=== PATIENT | male | born 1975 | race Caucasian/White ===

== ENCOUNTER → 2016-07-16 | Outpatient (CLI) | payer BC ==
--- NOTE | 2016-07-16 20:29 | PN ---
DATE OF SERVICE: 07/16/2016 A 41-year-old gentleman who has been followed in the sleep center for discussing results of sleep study and to check treatment with the CPAP. Patient recently initiated on treatment with CPAP. I discussed results of the sleep studies with the patient. Home sleep apnea test showed apnea-hypopnea index 19. CPAP during the CPAP titration affective CPAP pressure was 13 cm of water. Patient was initiated on treatment with CPAP. According to the patient, he feels better with the CPAP. He sleeps better and he feels better during the day. [place] Sleepiness Scale today is 8. I checked his CPAP unit. CPAP pressure is 13 cm of water, ramp is at 5 minutes. The patient does not have any significant problem related to the pressure. He had full-face mask during the study, but he has difficulties with the full-face mask so he was started on treatment with nasal pillow mask, AirFit P10. Patient is using equipment at night, but sometimes in the morning mask is out of the nostrils. Reading of his machine showed that out of 44 days he used it for 42 days but 23 nights for more than 4 hours. Subsequently, he used it but less than 4 hours. Average usage is 4.5 hours. Leak is 30 L/min. Apnea-hypopnea index reading from the machine is only 1.8, which is totally normal. MEDICATIONS: Prevacid. PHYSICAL EXAMINATION: GENERAL: During physical exam, the patient in no distress. VITAL SIGNS: BP 133/89, HR 66, RR 16. Weight 298, temp 97.7, oxygen saturation at room air 95%. HEENT: PERRLA, EOMI. Evaluation of oropharynx showed extremely low position of soft palate. NECK: Supple. No JVD. Thyroid is not palpable. LUNGS: Clear to percussion and to auscultation. Good air exchange. No wheezing or rhonchi. HEART: S1, S2 regular. No murmurs, gallops, or rubs. ABDOMEN: Obese, soft and nontender. Bowel sounds are present. No organomegaly appreciated. EXTREMITIES: No clubbing or cyanosis. HVAC CONTROLS TECHNICIAN: Awake, alert, and oriented x3. Cranial nerves 2 to 7 intact. There is no fasciculation or atrophy noted. No focal deficits observed. IMPRESSION: 1. Moderate obstructive sleep apnea-hypopnea syndrome. Apnea-hypopnea index 19 with oxygen desaturation to 83% on control with CPAP at the pressure of 13 cm of water. Patient is benefiting from treatment. He is using equipment every night but on the second part of the night sometimes mask falls off his face. 2. Obesity. 3. Acid reflux. 4. Status post laser surgery on the larynx. 5. Status post spinal fusion of the neck. 6. Back problems. 7. Knee pain. PLAN: 1. Patient will continue to use CPAP equipment every night for the whole night. 2. We will consider to change nasal pillow to Flynn FX nasal pillows. 3. Losing weight. 4. Sleep hygiene with regular time in bed for at least 8 hours. 5. No driving if feeling any sleepiness. Thank you very much for allowing me to participate in the management of your patients. Sincerely, Michael Graves MD, PhD, FAASM. Diplomat of [employer], Sleep Medicine Board by [employer] Ssrs Developer of [facility] [place]
== END | disposition home or self-care (01) ==
LOC: SLEEP 16:07
PROVIDERS: ATTEND Internal Medicine
DX: G47.33 Obstructive sleep apnea (adult) (pediatric) (principal); E66.9 Obesity, unspecified; K21.9 Gastro-esophageal reflux disease without esophagitis; Z98.890 Other specified postprocedural states; Z98.1 Arthrodesis status; M25.569 Pain in unspecified knee; Z79.899 Other long term (current) drug therapy

== ENCOUNTER → 2017-09-21 | Outpatient (CLI) | payer BC ==
--- NOTE | 2017-09-21 21:13 | MR ---
MR sacroiliac joints HISTORY: Low back pain, ankylosing spondylitis Multiplanar multisequence imaging through the sacroiliac joints No additional studies available for correlation. Bone marrow signal is remarkable for possible small subchondral geode along the sacrum on the right. Minimal subchondral marrow edema is suspected. Low signal present along both sides of the sacroiliac joints on T1 and T2-weighted sequences suggests sclerosis Cartilage is maintained. There is no eviden t erosion, ankylosis, or significant hypertrophic change, sacroiliac joints are intact. There is no e vident spinal stenosis. Disc spaces at the lower lumbar spine, lumbar sacral junction are normal. IMPRESSION: Mild subchondral edema, possible sclerosis without ankylosis.
== END | disposition home or self-care (01) ==
LOC: RADMRIMAIN 19:31
PROVIDERS: ATTEND Internal Medicine Rheumatology
DX: R60.0 Localized edema (principal)
CPT/HCPCS: 72195

== ENCOUNTER → 2017-12-18 | Outpatient (CLI) | payer BC ==
[2017-12-18 08:37] LABS: Basophils % (A) 0 %; Eosinophils # (A) 0.1 k/uL (0-0.7); Eosinophils % (A) 1 %; HCT 42.3 % (39.0-53.0); HGB 14.6 gm/dL (13.0-17.5); Lymphocytes # (A) 1.9 k/uL (1.0-4.8); Lymphocytes % (A) 19 %; MCH 29.9 pg (25.0-35.0); MCHC 34.5 g/dL (31.0-37.0); MCV 86.8 fL (80.0-100.0); Mean Platelet Volume 7.9; Monocytes # (A) 0.7 k/uL (0-1.0); Monocytes % (A) 7 %; Neutrophils # (A) 7.2 k/uL (1.3-7.7); Neutrophils % (A) 72 %; Platelet Count 209 k/uL (150-450); RBC 4.88 m/uL (4.30-5.90); RDW 13.3 % (11.5-15.5); WBC 10.1 k/uL (3.8-10.6)
[2017-12-18 09:48] LABS: ALT 44 U/L (21-72); AST 24 U/L (17-59); Albumin 3.9 g/dL (3.5-5.0); Alkaline Phosphatase 69 U/L (38-126); Anion Gap 8 mmol/L; Blood Urea Nitrogen 14 mg/dL (9-20); Calcium 8.9 mg/dL (8.4-10.2); Carbon Dioxide 24 mmol/L (22-30); Chloride 108 mmol/L (98-107); Cholesterol 133 mg/dL (<200); Glucose 124 mg/dL (74-99); HDL Cholesterol 37 mg/dL (40-60); LDL Cholesterol,Calculated 81 mg/dL (0-99); Potassium 4.6 mmol/L (3.5-5.1); Sodium 140 mmol/L (137-145); Total Bilirubin 0.5 mg/dL (0.2-1.3); Total Protein 6.8 g/dL (6.3-8.2); Triglycerides 76 mg/dL (<150)
[2017-12-18 18:39] LABS: Hemoglobin A1C 6.1 % (4.0-6.0)
== END | disposition home or self-care (01) ==
LOC: LABWHC1 08:00
PROVIDERS: ATTEND Family Medicine
DX: E11.9 Type 2 diabetes mellitus without complications (principal); I10 Essential (primary) hypertension; E78.5 Hyperlipidemia, unspecified; Z12.5 Encounter for screening for malignant neoplasm of prostate
CPT/HCPCS: 84439; 80061; 80053; 84443; 85025; 83036; 36415; G0103

== ENCOUNTER → 2018-03-26 | Outpatient (CLI) | payer BC ==
[2018-03-26 17:08] LABS: Albumin 4.4 g/dL (3.80-4.90); Albumin/Globulin Ratio 1.91 (1.20-2.10); Anion Gap 11.6 mmol/L (4.00-12.00); Calcium 9.2 mg/dL (8.7-10.3); Carbon Dioxide 25.4 mmol/L (21.6-31.8); Globulin 2.3 g/dL (2.1-3.7); Potassium 4.2 mmol/L (3.5-5.5); Total Bilirubin 0.6 mg/dL (0.2-1.2); Total Protein 6.7 g/dL (6.2-8.2)
[2018-03-26 18:06] LABS: Hemoglobin A1C 7.7 % (4.0-6.0)
== END | disposition home or self-care (01) ==
LOC: LABWHC1 08:14
PROVIDERS: ATTEND Family Medicine
DX: E11.9 Type 2 diabetes mellitus without complications (principal)
CPT/HCPCS: 36415; 80053; 80061; 83036

== ENCOUNTER → 2019-01-28 | Outpatient (CLI) | payer BC ==
[2019-01-28 16:58] LABS: African American GFR (CKD) 126.8 (60.0-200.0); Albumin 4.3 g/dL (3.80-4.90); Albumin/Globulin Ratio 2.05 (1.60-3.17); Anion Gap 9.3 mmol/L (4.00-12.00); BUN/Creat Ratio 17.5 Ratio (12.00-20.00); Calcium 9.2 mg/dL (8.7-10.3); Carbon Dioxide 26.7 mmol/L (21.6-31.8); Chol/HDL Ratio 4.37; Globulin 2.1 g/dL (1.6-3.3); LDL Cholesterol,Calculated 62.2 mg/dL (0.0-131.0); Potassium 4.2 mmol/L (3.5-5.5); Total Bilirubin 0.5 mg/dL (0.3-1.2); Total Protein 6.4 g/dL (6.2-8.2); VLDL Calculation 38.8 mg/dL (5.00-40.00)
== END | disposition home or self-care (01) ==
LOC: LABWHC1 08:00
PROVIDERS: ATTEND Family Medicine
DX: I10 Essential (primary) hypertension (principal); E78.5 Hyperlipidemia, unspecified; E11.9 Type 2 diabetes mellitus without complications
CPT/HCPCS: 36415; 80053; 80061; 83036; 84403

== ENCOUNTER → 2020-10-14 | Outpatient (CLI) | payer BC | END | disposition home or self-care (01) | LOC: LABPAT 07:01 | PROVIDERS: ATTEND Surgery | DX: Z01.810 Encounter for preprocedural cardiovascular examination (principal); Z11.52 Encounter for screening for COVID-19 | CPT/HCPCS: 93005; U0003; C9803; U0005 ==

== ENCOUNTER 2020-10-22 08:51 | Day surgery (SDC) | payer BC ==
[2020-10-18 10:24] VITALS: BMI 38.0
[~2020-10-22 08:51] MED LIST: DEXAMETHASONE SOD PHOSPHATE 4 MG/ML 1 ML VIAL IV ONE; HEPARIN SODIUM,PORCINE/PF 5,000 UNIT/0.5 ML SYRINGE SQ PRN; HYDROmorphone 0.5 MG/0.5 ML SYRINGE IVP PRN; LACTATED RINGERS 1,000 ML IV SCH; MIDAZOLAM 2 MG/2 ML VIAL IV PRN; ONDANSETRON 4 MG/2 ML VIAL IVP ONE; SCOPOLAMINE 1.5MG/72HR PATCH TRANSDERM ONE; ceFAZolin 3 GM in SODIUM CHLORIDE 0.9% 100 ML IVPB PRN
[2020-10-22 09:26] LABS: Glucose,Whole Blood 124 mg/dL (75-99)
[2020-10-22 10:00] LABS: HCT 45.6 % (39.0-53.0); HGB 16.2 gm/dL (13.0-17.5); MCHC 35.6 g/dL (31.0-37.0); MCV 87.2 fL (80.0-100.0); Mean Platelet Volume 8.9; Platelet Count 211 k/uL (150-450); RBC 5.23 m/uL (4.30-5.90); RDW 12.8 % (11.5-15.5); WBC 8.1 k/uL (3.8-10.6)
[2020-10-22] MEDS ORDERED: fentaNYL (PF) 50 MCG/ML 2 ML AMP IV ONE (10:07)
[2020-10-22] MEDS ORDERED: MIDAZOLAM 2 MG/2 ML VIAL IV ONE (10:07)
[2020-10-22] MEDS ORDERED: ROPIVACAINE 5 MG/ML 30 ML VIAL ONE (11:00)
[2020-10-22] MEDS ORDERED: ROCURONIUM 10 MG/ML (5 ML VIAL) IV ONE (11:00)
[2020-10-22] MEDS ORDERED: LIDOCAINE 1% INJ 10MG/ML (20 ML MDV) ONE (11:00)
[2020-10-22] MEDS ORDERED: MIDAZOLAM 2 MG/2 ML VIAL ONE (11:00)
[2020-10-22] MEDS ORDERED: PROPOFOL 10 MG/ML 20 ML VIAL IV ONE (11:00)
[2020-10-22] MEDS ORDERED: HYDROmorphone (PF) 1 MG/ML ONE (11:00)
[2020-10-22] MEDS ORDERED: KETOROLAC 15 MG/ML 1 ML VIAL ONE (11:00)
[2020-10-22] MEDS ORDERED: SUCCINYLCHOLINE CHLORIDE VIAL 200 MG/10 ML VIAL IV ONE (11:00)
[2020-10-22] MEDS ORDERED: fentaNYL (PF) 50 MCG/ML 2 ML AMP ONE (11:00)
--- NOTE | 2020-10-22 11:04 | P.HPIHPCON ---
History of Present Illness H&P Date: 10/22/20 Chief Complaint: Umbilical hernia This is a 45-year-old male that originally presented to the office with complaints of possible hernia. This was located in the umbilical area with a palpable bulge. He stated that the pain was made worse by straining, lifting or pulling. It was made better by resting. He denied any significant changes to bowel function. He denies any previous hernia or abdominal surgeries. Consent for Procedure: I have explained the operation/procedure to the patient, including the risks, benefits, side effects, alternative therapies (including not receiving the proposed treatment or service), the likelihood of the patient achieving his/her goals, and potential recuperation problems for the procedure/sedation/analgesia, as well as any blood products, if indicated. I also explained to the patient the risks, benefits and side effects of the alternatives, as well as the risks related to not receiving the proposed procedure, care, treatment, or services. - Review of Systems All systems: negative Past Medical History Past Medical History: Diabetes Mellitus, GERD/Reflux, Osteoarthritis (OA) Additional Past Medical History / Comment(s): HX OF LEUKOPLAKIA OF LARYNX History of Any Multi-Drug Resistant Organisms: None Reported Additional Past Surgical History / Comment(s): Cervical Fusion, laser of Leukoplakia of larynx Past Anesthesia/Blood Transfusion Reactions: No Reported Reaction, Previous Problems w/ Anesthesia, Motion Sickness Additional Past Anesthesia/Blood Transfusion Reaction / Comment(s): states he was awake during larynx surgery. Past Psychological History: No Psychological Hx Reported Smoking Status: Former smoker Past Alcohol Use History: Rare Additional Past Alcohol Use History / Comment(s): quit smoking 2007, smoked 1ppd, started age 19. Past Drug Use History: Marijuana Additional Drug Use History / Comment(s): no current marijuana use - Past Family History Mother Family Medical History: No Reported History Medications and Allergies Home Medications Medication Instructions Recorded Confirmed Type metFORMIN HCL [Glucophage] 500 mg PO QID 06/08/17 10/18/20 History Aspirin [Adult Low Dose Aspirin EC] 81 mg PO DAILY 10/18/20 10/18/20 History Atorvastatin [Lipitor] 20 mg PO HS 10/18/20 10/18/20 History Empagliflozin [Jardiance] 25 mg PO DAILY 10/18/20 10/18/20 History Lansoprazole 30 mg PO HS 10/18/20 10/18/20 History Losartan Potassium 50 mg PO HS 10/18/20 10/18/20 History Multivitamins, Thera [Multivitamin 1 tab PO DAILY 10/18/20 10/18/20 History (formulary)] Allergies Allergy/AdvReac Type Severity Reaction Status Date / Time No Known Allergies Allergy Verified 10/22/20 09:13 Surgical - Exam Osteopathic Statement: *. No significant issues noted on an osteopathic structural exam other than those noted in the History and Physical/Consult. Vital Signs Temp Pulse Resp BP Pulse Ox 98 F 74 17 158/88 97 10/22/20 09:19 10/22/20 09:19 10/22/20 09:19 10/22/20 09:19 10/22/20 09:19 - General well nourished, no distress - Respiratory normal respiratory effort - Abdomen Soft, nontender, nondistended, palpable and reducible umbilical hernia Results - Labs 10/22/20 09:23 Abnormal Lab Results - Last 24 Hours (Table) 10/22/20 Range/Units 09:25 POC Glucose (mg/dL) 124 H (75-99) mg/dL Assessment and Plan Plan: Plan is for robotic of local hernia repair with mesh placement. Risks, benefits and alternatives were provided to the patient. Instructions were provided to the patient. Further recommend irrigations after procedure.
[2020-10-22] MEDS ORDERED: LIDOCAINE 1%-EPI 1:100,000 20 ML VIAL SQ ONE ×3 (11:19)
[2020-10-22] MEDS ORDERED: LACTATED RINGERS 1,000 ML IV ONE (11:37)
--- NOTE | 2020-10-22 12:08 | P.OP ---
Date of Procedure: 10/22/20 Preoperative Diagnosis: Umbilical hernia Postoperative Diagnosis: Umbilical hernia Procedure(s) Performed: Robotic umbilical hernia repair with mesh Implants: 11 cm circular Bard ventralight echo 2.0 mesh Anesthesia: JANETTEA Surgeon: Nicola Elizabeth Pathology: other (Hernia sac) Condition: stable Disposition: same day Indications for Procedure: 45-year-old male presented to the surgery clinic with complaints of pain around the umbilicus and a bulge. He was found to have an umbilical hernia. He has requested repair. Risks, benefits and alternatives were provided to the patient and he did provide consent prior to attending the operating suite. Operative Findings: Umbilical hernia measuring 2 x 2 centimeters Description of Procedure: The patient was brought to the operating suite and placed in supine position. Gen. anesthesia with endotracheal intubation was performed as per anesthesia team. The right arm was tucked the ansa body in the foot board was applied. Chlorhexidine was used to prep the skin followed by application of sterile drapes and a timeout was performed to verify correct patient. After local anesthetic was administered, a 5 mm skin incision was made along the left midaxillary line at palmers point and the abdomen was entered under direct visualization using a Visiport. Pneumoperitoneum was achieved. The umbilical hernia was clearly visualized. It did contain preperitoneal fat and omentum. An additional 8 mm trocar was placed in the left lower abdomen and a 12 mm trocar placed in the left mid abdomen. The initial 5 mm trocar was upsized to an 8 mm trocar. The robot was then docked. A robotic caudier and monopolar scissors were inserted through the 8 mm robotic trochars. The hernia defect contained preperitoneal fat and omentum which were reduced using gentle traction and countertraction method. The falciform ligament was divided, using monopolar scissors close to the anterior abdominal wall to create a landing zone for the mesh. A Tray Echo system circular 11cm mesh was rolled and introduced into the abdominal cavity via the 12 mm trocar. The hernia defect was closed primarily with running sutures using 0 Vlock taking 1cm by of the fascia on either side of the defect. A Antwan Lozada device was inserted through the middle of the hernia defect and the stay suture on the mesh was grasped to elevate the mesh against the anterior abdominal wall. The mesh was circumferentially sutured to the peritoneum of the anterior abdominal wall using 20V lock without any folds or kinks. The robot was then undocked. All trocar sites were examined. No evidence of bleeding. All needles were removed. The 12 mm trocar site was closed using 2 trans-fascial sutures of 0 Vicryl which were placed using a Antwan-Ger device. The pneumoperitoneum was evacuated and all skin incisions were closed using 4-0 Vicryl followed by Dermabond skin glue. The sponge, instrument and needle count were correct 2. Abdominal binder was applied. The patient was explained and taken to postanesthesia care unit in stable condition.
[2020-10-22 12:22] VITALS: TEMP 97.6
[2020-10-22 12:28] LABS: Glucose,Whole Blood 196 mg/dL (75-99)
[2020-10-22] MEDS ORDERED: SODIUM CHLORIDE 0.9% 1,000 ML IV ONE ×2 (13:06)
--- NOTE | 2020-10-22 13:32 | P.ANPRN ---
Procedure Note - Anesthesia - Nerve Block Performed Bilateral Rectus Abdominis Time Out Performed: Yes (:) Date of Procedure: 10/22/20 Procedure Start Time: Procedure Stop Time: Location of Patient: PreOp Indication: Acute Post-Operative Pain, Requested by Surgeon (Dr Elizabeth) Sedation Type: Sedate with meaningful contact maintained Preparation: Sterile Prep Position: Supine Catheter: None Needle Types: Pajunk Needle Gauge: 21 Ultrasound used to visualize needle placement: Yes Ultrasound used to observe medication spread: Yes Injectate: 0.5% Ropivacaine (see comment for volume) (15cc +10cc PF Normal saline each side) Blood Aspirated: No Pain Paresthesia on Injection Noted: No Resistance on Injection: Normal Image Stored and Saved: Yes Events: Uneventful and Well Tolerated
[2020-10-22] MEDS ORDERED: HYDROcodone/APAP 5-325MG 1 EACH TAB ONE (13:42)
[2020-10-22] MEDS ORDERED: HYDROcodone/APAP 5-325MG 1 EACH TAB PO ONE (13:44)
[2020-10-22 13:46] VITALS: BP 138/81; PULSE 78; RESP 16
== END 2020-10-22 14:15 | disposition home or self-care (01) ==
LOC: OR 08:51
PROVIDERS: ATTEND Surgery
DX: K42.9 Umbilical hernia without obstruction or gangrene (principal); M19.90 Unspecified osteoarthritis, unspecified site; E11.9 Type 2 diabetes mellitus without complications; K21.9 Gastro-esophageal reflux disease without esophagitis; I10 Essential (primary) hypertension; E78.5 Hyperlipidemia, unspecified; R01.1 Cardiac murmur, unspecified; E78.00 Pure hypercholesterolemia, unspecified; G47.30 Sleep apnea, unspecified; Z86.19 Personal history of other infectious and parasitic diseases; Z98.1 Arthrodesis status; Z98.890 Other specified postprocedural states; Z87.891 Personal history of nicotine dependence; Z83.3 Family history of diabetes mellitus; Z83.79 Family history of other diseases of the digestive system; Z79.84 Long term (current) use of oral hypoglycemic drugs; Z79.82 Long term (current) use of aspirin; Z79.899 Other long term (current) drug therapy
CPT/HCPCS: 49652; S2900; 64999; 76942; 85027; 88302

== ENCOUNTER 2021-10-24 07:10 | Day surgery (SDC) | payer BC ==
[2021-10-22 13:39] VITALS: BMI 39.4
[~2021-10-24 07:10] MED LIST changes: -DEXAMETHASONE SOD PHOSPHATE 4 MG/ML 1 ML VIAL IV ONE; -HEPARIN SODIUM,PORCINE/PF 5,000 UNIT/0.5 ML SYRINGE SQ PRN; -HYDROmorphone 0.5 MG/0.5 ML SYRINGE IVP PRN; -MIDAZOLAM 2 MG/2 ML VIAL IV PRN; -ONDANSETRON 4 MG/2 ML VIAL IVP ONE; -SCOPOLAMINE 1.5MG/72HR PATCH TRANSDERM ONE; -ceFAZolin 3 GM in SODIUM CHLORIDE 0.9% 100 ML IVPB PRN
[2021-10-24 07:34] VITALS: TEMP 98.2
[2021-10-24 07:40] LABS: Glucose,Whole Blood 130 mg/dL (70-110)
[2021-10-24] MEDS ORDERED: LIDOCAINE 2% INJ 20 MG/ML (2 ML VIAL) ONE (08:10)
[2021-10-24] MEDS ORDERED: MIDAZOLAM 2 MG/2 ML VIAL ONE (08:10)
[2021-10-24] MEDS ORDERED: fentaNYL (PF) 50 MCG/ML 2 ML AMP ONE (08:10)
[2021-10-24] MEDS ORDERED: PROPOFOL 10 MG/ML 20 ML VIAL IV ONE (08:10)
--- NOTE | 2021-10-24 08:26 | P.HPIHPCON ---
History of Present Illness H&P Date: 10/24/21 46-year-old male presents today for screening colonoscopy. He has never had a colonoscopy previously. Denies blood in his stool. Denies any family members with a history of inflammatory bowel disease or colon cancer. Consent for Procedure: I have explained the operation/procedure to the patient, including the risks, benefits, side effects, alternative therapies (including not receiving the proposed treatment or service), the likelihood of the patient achieving his/her goals, and potential recuperation problems for the procedure/sedation/analgesia, as well as any blood products, if indicated. I also explained to the patient the risks, benefits and side effects of the alternatives, as well as the risks related to not receiving the proposed procedure, care, treatment, or services. - Review of Systems All systems: negative Past Medical History Past Medical History: Diabetes Mellitus, GERD/Reflux, Hyperlipidemia, Hypertension, Sleep Apnea/CPAP/BIPAP Additional Past Medical History / Comment(s): Arthritis, does not use his CPAP. History of Any Multi-Drug Resistant Organisms: None Reported Past Surgical History: Hernia Repair Additional Past Surgical History / Comment(s): Spinal Fusion, Past Anesthesia/Blood Transfusion Reactions: No Reported Reaction Smoking Status: Former smoker - Past Family History Mother Additional Family Medical History / Comment(s): colon polyps Medications and Allergies Home Medications Medication Instructions Recorded Confirmed Type metFORMIN HCL [Glucophage] 500 mg PO QID 06/08/17 10/24/21 History Aspirin [Adult Low Dose Aspirin EC] 81 mg PO DAILY 10/18/20 10/24/21 History Atorvastatin [Lipitor] 20 mg PO HS 10/18/20 10/24/21 History Empagliflozin [Jardiance] 25 mg PO DAILY 10/18/20 10/24/21 History Lansoprazole 30 mg PO HS 10/18/20 10/24/21 History Losartan Potassium 50 mg PO HS 10/18/20 10/24/21 History Multivitamins, Thera [Multivitamin 1 tab PO DAILY 10/18/20 10/24/21 History (formulary)] Allergies Allergy/AdvReac Type Severity Reaction Status Date / Time No Known Allergies Allergy Verified 10/24/21 07:27 Surgical - Exam Osteopathic Statement: *. No significant issues noted on an osteopathic structural exam other than those noted in the History and Physical/Consult. Vital Signs Temp Pulse Resp BP Pulse Ox 98.2 F 71 18 145/95 96 10/24/21 07:33 10/24/21 07:33 10/24/21 07:33 10/24/21 07:33 10/24/21 07:33 - General well nourished, no distress - Eyes normal ocular movement - ENT no hearing loss - Neck trachea midline - Respiratory normal respiratory effort - Abdomen Abdomen: soft, non tender - Neurologic normal coordination, normal sensation Results - Labs Abnormal Lab Results - Last 24 Hours (Table) 10/24/21 Range/Units 07:37 POC Glucose (mg/dL) 130 H (70-110) mg/dL Assessment and Plan Plan: 46-year-old male presents today for screening colonoscopy. Risks, benefits and alternatives were provided. Further recommendations after procedure.
--- NOTE | 2021-10-24 08:28 | P.PCN ---
Date of Procedure: 10/24/21 Preoperative Diagnosis: Screening Postoperative Diagnosis: Normal colon Procedure(s) Performed: Colonoscopy Anesthesia: MAC Surgeon: Nicola Elizabeth Pathology: none sent Condition: stable Disposition: same day Indications for Procedure: 46-year-old male presents today for screening colonoscopy. Risks, benefits and alternatives were provided. He denies any blood in his stool. Denies any history of colon cancer within the family. Operative Findings: Overall, normal appearing colon Description of Procedure: The patient was brought into the endoscopy suite and placed in left lateral decubitus position and adequate sedation was achieved using conscious sedation. A digital rectal exam was performed and mild internal hemorrhoids were palpated. An endoscope was then placed in the rectum and advanced to the cecum was identified by landmarks including the appendiceal orifice and the ileocecal valve. The prep was good. The colonoscope was then slowly withdrawn, examining for any mucosal abnormalities. The cecum, ascending, transverse, descending and sigmoid colon were visualized adequately. There were no obvious neoplastic lesions throughout the colon. There are no obvious polyps noted throughout the colon. There is no evidence of diverticulosis. Retroflexion was performed in the rectum and internal hemorrhoids were visible. Excess air was removed, the colonoscope withdrawn and the procedure terminated. The patient was then tr ansferred to the recovery unit in stable condition. Repeat colonoscopy should be performed in 10 years.
[2021-10-24] MEDS ORDERED: IV FLUID CONTINUATION 700 ML IV ONE (08:32)
[2021-10-24 08:40] VITALS: RESP 16
[2021-10-24 08:51] VITALS: BP 129/82; PULSE 68
== END 2021-10-24 09:13 | disposition home or self-care (01) ==
LOC: ORWHC2ENDO 07:10
PROVIDERS: ATTEND Surgery
DX: Z12.11 Encounter for screening for malignant neoplasm of colon (principal); K64.8 Other hemorrhoids; K21.9 Gastro-esophageal reflux disease without esophagitis; E11.9 Type 2 diabetes mellitus without complications; E78.5 Hyperlipidemia, unspecified; I10 Essential (primary) hypertension; G47.33 Obstructive sleep apnea (adult) (pediatric); M19.90 Unspecified osteoarthritis, unspecified site; Z98.1 Arthrodesis status; Z98.890 Other specified postprocedural states; Z87.891 Personal history of nicotine dependence; Z83.71 Family history of colonic polyps; Z79.84 Long term (current) use of oral hypoglycemic drugs; Z79.82 Long term (current) use of aspirin; Z79.899 Other long term (current) drug therapy
CPT/HCPCS: J2250; J3010; J2704; J2001; G0105

== ENCOUNTER 2022-05-27 07:15 | Outpatient (CLI) | payer BC | END 2022-06-01 | disposition home or self-care (01) | LOC: RADMRIMAIN 06-01 19:20 | PROVIDERS: ATTEND Family Medicine | DX: Z53.9 Procedure and treatment not carried out, unspecified reason (principal) ==